=== PATIENT | female | born 1985 | race African-American/Black ===

== ENCOUNTER 2019-11-02 20:29 | Emergency (ER) | payer OTHER ==
[~2019-11-02] VITALS: Ht 172.7 cm; Wt 71.8 kg
[2019-11-02 20:57] LABS: BASO % 0.7 % (0.0-1.0); EOS # 0.3 10^3/uL (0.0-0.5); EOS % 4.3 % (0.0-3.0); HEMATOCRIT 34.1 % (36.0-47.0); HEMOGLOBIN 11.5 g/dl (12.0-15.5); LYMPH # 1.5 10^3/uL (1.5-5.0); LYMPH % 26.2 % (24.0-44.0); MEAN CORPUSCULAR HEMOGLOBIN 32.8 pg (27.0-33.0); MEAN CORPUSCULAR HGB CONC 33.7 g/dl (32.0-36.5); MEAN CORPUSCULAR VOLUME 97.2 fl (80.0-96.0); MONO # 0.8 10^3/uL (0.0-0.8); MONO % 12.8 % (0.0-5.0); NEUTROPHILS # 3.3 10^3/uL (1.5-8.5); NEUTROPHILS % 55.8 % (36.0-66.0); PLATELET COUNT, AUTOMATED 239 10^3/uL (150-450); RED BLOOD COUNT 3.51 10^6/uL (4.00-5.40); WHITE BLOOD COUNT 5.8 10^3/uL (4.0-10.0)
[2019-11-02 21:14] LABS: ALBUMIN 3.7 GM/DL (3.2-5.2); ALT/SGPT 18 U/L (12-78); BILIRUBIN,DIRECT < 0.1 MG/DL (0.0-0.2); BILIRUBIN,TOTAL 0.3 MG/DL (0.2-1.0); LIPASE 96 U/L (73-393); TOTAL PROTEIN 7.9 GM/DL (6.4-8.2)
[2019-11-02] MEDS ORDERED: ONDANSETRON 4MG/2ML VIAL (J2405) IV ONE (21:30)
[2019-11-02] MEDS ORDERED: KETOROLAC 30 MG/ML VIAL (J1885) IV ONE (21:30)
--- NOTE | 2019-11-02 22:10 | REPVR ---
PROCEDURE INFORMATION: Exam: US Pelvis Complete, Transabdominal and US Pelvis, Transvaginal Exam date and time: 11/02/2019 9:55 PM Age: 34 years old Clinical indication: Pelvic pain; Additional info: Sudden onset of severe right pelvic pain; R/O torsion TECHNIQUE: Imaging protocol: Real-time transabdominal and transvaginal pelvic ultrasound (complete) with image documentation. Transvaginal imaging was used for better evaluation of the endometrium and adnexa. COMPARISON: No relevant prior studies available. FINDINGS: Uterus/cervix: Uterus measures 8 x 4.3 x 4.6 cm. Anterior fundal myoma measures 2.4 x 2.6 x 2 cm. Endometrial echo complex measures 8.7 mm. Right adnexa: Right ovary measures 5.7 x 5.5 x 5.7 cm. Normal flow. Complex right ovarian cystic process measures 5 x 5 x 5.3 cm. Lesion is septated partially fill with low level internal echoes. Finding may represent an endometrioma, hemorrhagic cyst, or dermoid. Left adnexa: Left ovary measures 4 x 1.8 x 2.5 cm. Normal flow. Free fluid: None. Bladder: Normal. IMPRESSION: 1. Complex right ovarian cystic process measures 5 x 5 x 5.3 cm. Lesion is septated partially fill with low level internal echoes. Finding may represent an endometrioma, hemorrhagic cyst, or dermoid. 2. Uterine fibroid. Electronically signed by: Derian Gordon On 11/02/2019 22:10:44 PM
[2019-11-02] MEDS ORDERED: PERCOCET 5MG/325MG TAB PO ONE (22:45)
[2019-11-02] MEDS ORDERED: OXYCODONE/APAP 5MG/325MG(BULK FOR ED) 1 TABLET PO ONE (23:30)
[2019-11-02] MEDS ORDERED: PERC5TAB12 PO (23:31)
[2019-11-02 23:39] VITALS: BP 119/73
--- NOTE | 2019-11-03 13:04 | ED PDOC ---
Post-Departure Follow-Up alison rust faxed formal report of pelvic us for fu Juan A Giron MD Nov 03, 2019 13:04
== END 2019-11-02 23:47 | disposition home or self-care (01) ==
LOC: M ED 20:29 → EDBD 20:29 → M ED 23:47
DX: N83.291 Other ovarian cyst, right side (principal); D25.9 Leiomyoma of uterus, unspecified
CPT/HCPCS: 76830; 76856; 80047; 80076; 83690; 84702; 85025; 93041; 93976; 96374; 96375; 99284; J1885; J2405

== ENCOUNTER → 2019-11-14 | Outpatient (CLI) | payer OTHER ==
[~2019-11-14] MED LIST: PERC5TAB12 PO
--- NOTE | 2019-11-15 04:35 | REP ---
Clinical: History of right ovarian cyst and uterine fibroid. Technique: Transabdominal pelvic ultrasound followed by transvaginal examination for better evaluation of the endometrium and adnexa with color Doppler evaluation of the ovaries. Comparison: Findings: Bladder is normal and measures 5.8 x 3.3 x 6.1 cm. Heterogeneous retroverted uterus measures 6.8 x 4.8 x 5.5 cm. Endometrial complex measures 5 mm thickness. Right fundal fibroid measures 3.0 x 1.9 x 2.4 cm. Anterior intramural fibroid measures 2.3 x 1.8 x 2.3 cm. Left ovary is normal in appearance and vascularity measuring 2.4 x 1.9 x 2.1 cm (RI 0.59). The right ovary measures 4.9 x 3.6 x 3.4 cm (RI 0.70) and includes 3.8 x 2.3 x 2.6 cm complex/hypoechoic lesion possibly representing hemorrhagic cyst. No pelvic fluid or adnexal mass lesion. Impression: 1. Heterogeneous myomatous uterus. 2. Complex structure in the right ovary is again identified and mildly decreased in size when compared to prior examination. Consider short-term follow-up at 4-6 weeks to evaluate for further resolution. Electronically Signed by Liu Jiménez MD 11/15/2019 04:26 A
== END ==
LOC: M RAD 11:31
PROVIDERS: ATTEND Obstetrics & Gynecology
DX: D25.9 Leiomyoma of uterus, unspecified (principal); R93.5 Abnormal findings on diagnostic imaging of other abdominal regions, including retroperitoneum

== ENCOUNTER → 2019-12-04 | Outpatient (CLI) | payer OTHER ==
--- NOTE | 2019-12-04 10:04 | REP ---
Clinical: Pelvic mass. Technique: Transabdominal pelvic ultrasound followed by transvaginal examination for better evaluation of the endometrium and adnexa. Comparison: 11/14/2019. Findings: Bladder measures 6.4 x 5.3 x 8.1 cm and appears normal. Heterogeneous myomatous uterus measures 7.6 x 4.8 x 5.6 cm. Endometrial complex measures 9.5 mm thickness. Posterior right complex intramural fibroid measures 2.6 x 1.7 x 2.1 cm. Complex left intramural and possibly submucosal fibroid measures 3.0 x 2.3 x 2.9 cm. Bilateral ovaries demonstrate normal vascularity without torsion. The right ovary measures 4.2 x 2.8 x 2.8 cm (RI 0.60) and includes 2.5 x 2.2 x 2.0 cm complex cyst likely representing physiologic hemorrhagic cyst which is decreased from prior examination. Left ovary measures 5.6 x 4.1 x 5.4 cm (RI 0.90) and includes 4.8 x 2.9 x 4.7 cm complex cyst which represents a new finding and likely represents a new physiologic hemorrhagic cyst. No pelvic fluid or adnexal mass lesion. Impression: 1. Heterogeneous uterine lesions likely representing fibroids as described above. 2. Complex cyst in the right ovary is decreased in size from prior examination likely represents resolving hemorrhagic cyst. New complex cystic lesion in the left ovary likely represents physiologic hemorrhagic cyst. Electronically Signed by Liu Jiménze MD 12/04/2019 09:56 A
== END ==
LOC: M RAD 08:57
PROVIDERS: ATTEND Obstetrics & Gynecology
DX: R19.00 Intra-abdominal and pelvic swelling, mass and lump, unspecified site (principal)

== ENCOUNTER → 2020-01-01 | Outpatient (CLI) | payer OTHER ==
--- NOTE | 2020-01-01 23:05 | REP ---
Clinical: Adnexal mass. Technique: Transabdominal pelvic ultrasound followed by transvaginal examination for better evaluation of the endometrium and adnexa with color Doppler evaluation of the ovaries. Comparison: 12/04/2019. Findings: Bladder is normal and measures 9.0 x 9.2 x 5.9 cm. Heterogeneous anteverted uterus measures 8.2 x 5.0 x 5.6 cm. Endometrial complex measures 6.8 mm thickness. Complex posterior right subserosal fibroid again identified measuring approximately 2.6 x 2.4 x 2.6 cm and left posterior subserosal hypoechoic fibroid measures 2.6 x 2.9 x 2.6 cm. Right ovary is normal in appearance and vascularity measuring 2.6 x 1.7 x 2.9 cm (RI 0.68) and the previously identified complex likely physiologic cyst has resolved. Left ovary measures 3.9 x 3.7 x 3.6 cm (RI 0.65) and includes 2.7 x 2.0 x 3.1 cm complex likely physiologic cyst. Impression: 1. Heterogeneous anteverted uterus with stable suspected subserosal fibroids. 2. Previous right physiologic cysts resolved. Suspected physiologic cyst in the left ovary. Electronically Signed by Liu Jiménez MD 01/01/2020 10:56 P
== END ==
LOC: M RAD 08:43
PROVIDERS: ATTEND Obstetrics & Gynecology
DX: R19.09 Other intra-abdominal and pelvic swelling, mass and lump (principal)

== ENCOUNTER → 2022-05-19 | Outpatient (REF) | payer OTHER ==
[~2022-05-19] MED LIST changes: +CELE1CAP4 PO; +CYCL-707 PO; +ESZO1TAB4 PO; +FLON1SPR; +GABA-282 PO; +IBUP80TA PO; +IRON325T2 PO; +LEXA1TAB PO; +MM S100C PO; +MULTTAB20 PO
[2022-05-19 12:20] LABS: BASO % 0.7 % (0.0-1.0); EOS # 0.2 10^3/uL (0.0-0.5); EOS % 4.7 % (0.0-3.0); HEMATOCRIT 37.8 % (36.0-47.0); HEMOGLOBIN 12.7 g/dl (12.0-15.5); LYMPH # 1.3 10^3/uL (1.5-5.0); MEAN CORPUSCULAR HEMOGLOBIN 32.8 pg (27.0-33.0); MEAN CORPUSCULAR HGB CONC 33.6 g/dl (32.0-36.5); MEAN CORPUSCULAR VOLUME 97.7 fl (80.0-96.0); MONO # 0.5 10^3/uL (0.0-0.8); MONO % 11.9 % (2.0-8.0); NEUTROPHILS # 2.4 10^3/uL (1.5-8.5); NEUTROPHILS % 54.3 % (36.0-66.0); PLATELET COUNT, AUTOMATED 273 10^3/uL (150-450); RED BLOOD COUNT 3.87 10^6/uL (4.00-5.40); WHITE BLOOD COUNT 4.5 10^3/uL (4.0-10.0)
[2022-05-19 12:55] LABS: ALBUMIN 4.2 GM/DL (3.2-5.2); ALT/SGPT 17 U/L (12-78); BILIRUBIN,TOTAL 0.6 MG/DL (0.2-1.0); BLOOD UREA NITROGEN 9 MG/DL (7-18); CALCIUM LEVEL 10.1 MG/DL (8.5-10.1); CARBON DIOXIDE LEVEL 27 MEQ/L (21-32); CHLORIDE LEVEL 106 MEQ/L (98-107); CREATININE FOR GFR 0.84 MG/DL (0.55-1.30); ERYTHROCYTE SEDIMENTATION RATE 29 mm/hr (0-20); GLOMERULAR FILTRATION RATE > 60.0 (>60); GLUCOSE, FASTING 86 MG/DL (70-100); SODIUM LEVEL 137 MEQ/L (136-145); TOTAL PROTEIN 8.8 GM/DL (6.4-8.2)
== END ==
LOC: M SFHCRHEU 08:51
PROVIDERS: ATTEND Internal Medicine Rheumatology
DX: M25.50 Pain in unspecified joint (principal); R76.8 Other specified abnormal immunological findings in serum; G56.02 Carpal tunnel syndrome, left upper limb